=== PATIENT | female | born 1950 | race African-American/Black ===

== ENCOUNTER 2018-05-15 23:51 | Emergency (ER) | payer MEDICARE, MEDICAID ==
[~2018-05-15] VITALS: Ht 182.9 cm; Wt 120.5 kg
[2018-05-16] MEDS ORDERED: ACETAMINOPHEN 500MG TABLET PO ONE (01:45)
[2018-05-16] MEDS ORDERED: METHOCARBAMOL 500MG TABLET PO ONE (01:45)
[2018-05-16] MEDS ORDERED: LORATADINE 10MG TABLET PO ONE (03:30)
[2018-05-16 03:54] VITALS: BP 117/70
== END 2018-05-16 03:59 | disposition home or self-care (01) ==
LOC: ER 23:51
DX: S39.012A Strain of muscle, fascia and tendon of lower back, initial encounter (principal); M25.531 Pain in right wrist; I10 Essential (primary) hypertension; Z87.891 Personal history of nicotine dependence; Z88.5 Allergy status to narcotic agent; Z88.6 Allergy status to analgesic agent; Z91.018 Allergy to other foods; W19.XXXA Unspecified fall, initial encounter; Y93.89 Activity, other specified; Y92.89 Other specified places as the place of occurrence of the external cause; Y99.8 Other external cause status
CPT/HCPCS: 73110; 99284